=== PATIENT | female | born 1980 | race Caucasian/White ===

== ENCOUNTER 2024-05-18 00:04 | Emergency (ER) | payer SELFPAY ==
[2024-05-18 00:15] VITALS: BP 128/87; PULSE 90; RESP 15; TEMP 37.2; O2SAT 98; BMI 42.4
--- NOTE | 2024-05-18 01:27 | XR_ITS ---
PROCEDURE INFORMATION: Exam: XR Chest Exam date and time: 05/18/2024 1:35 AM Age: 43 years old Clinical indication: Shortness of breath; Additional info: SOA TECHNIQUE: Imaging protocol: Radiologic exam of the chest. Views: 1 view. COMPARISON: No prior studies were available at the time of this dictation. FINDINGS: Lungs: Lungs clear bilaterally. No consolidation. Pleural spaces: No pleural thickening. Heart/Mediastinum: Cardiac silhouette not enlarged. Bones/joints: Bones unremarkable. Other findings: Patient is slightly levo rotated. IMPRESSION: No acute findings.
--- NOTE | 2024-05-18 01:27 | ECG_ITS ---
APPROVED REPORT Exam: Resting ECG HR:77 bpm ECG Measurements Heart Rate 77 AXES WI 145 P 32 QRSd 86 QRS 69 QT 402 T 34 QTc 433 Conclusion SINUS RHYTHM LOW QRS VOLTAGE IN PRECORDIAL LEADS [QRS DEFLECTION < 1.0 mV IN CHEST LEADS] Electronically signed by : CATY PLAZA, 05/18/2024 06:10:03
[2024-05-18 01:35] LABS: Microscopic, Urine URINE MICROSCOPIC (MICROSCOPIC)
[2024-05-18 01:41] LABS: Appearance,Urine CLEAR (Clear); Bilirubin,Urine Negative (Negative); Blood, Urine TRACE-L (Negative); Color,Urine YELLOW (Yellow); Glucose,Urine (UA) Negative (Negative); Ketones,Urine Negative (Negative); Leukocyte Esterase,Urine Negative (Negative); Nitrate,Urine Negative (Negative); Protein,Urine Negative (Negative); Specific Gravity, Urine 1.025 (1.005-1.030); Urobilinogen,Urine 0.2 EU/dl (0.2)
[2024-05-18 01:43] LABS: Basophils # 0.1 K/mm3 (0-0.2); Basophils % 1.1 % (0.1-2.0); Eosinophils # 0.4 K/mm3 (0.0-0.4); Eosinophils % 3.3 % (0.1-12.0); Hematocrit 42.6 % (37.0-47.0); Hemoglobin 13.3 g/dL (12.2-16.2); Lymphocytes # 3.7 K/mm3 (0.7-4.5); Lymphocytes % 34.3 % (10-50); Mean Corpuscular HGB Conc 31.2 g/dL (31.8-35.4); Mean Corpuscular Hemoglobin 29.3 pg (27.0-31.2); Mean Platelet Volume 8.1 fl (7.4-10.4); Monocytes # 0.4 K/mm3 (0.1-1.0); Neutrophils # 6.2 K/mm3 (1.8-7.8); Neutrophils % 57.2 % (37.0-80.0); Platelet Count 396 K/mm3 (142-424); Red Blood Count 4.53 M/mm3 (4.20-5.40); Red Cell Distribution Width 13.9 % (11.5-17.5); White Blood Count 10.8 K/mm3 (4.8-10.8)
[2024-05-18 01:46] LABS: Albumin Level 4.4 g/dl (3.5-5.0); Chloride 107 mmol/L (98-107)
[2024-05-18 01:47] LABS: Potassium 3.8 mmoL/L (3.5-5.1); Sodium 138 mmol/L (136-145)
[2024-05-18 01:48] LABS: HCG Qualitative, Serum Negative (Negative); INR 1.01 (0.9-1.1); Prothrombin Time 11.3 seconds (10.1-12.5)
[2024-05-18 01:49] LABS: Alanine Aminotransferase 663 U/L (12-78); Albumin/Globulin Ratio 1.4 (1.1-1.8); Alkaline Phosphatase 83 U/L (38-126); Anion Gap 11.8 mEq/L (5-15); Aspartate Amino Transferase 330 U/L (14-36); Bilirubin,Total 0.8 mg/dl (0.2-1.3); Blood Urea Nitrogen 9 mg/dl (7-17); Carbon Dioxide 23 mmol/L (22.0-30.0); Creatinine Clearance Estimated 96 mL/min (50-200); Estimated Glomerular Filt Rate 91 ml/min (>60); GFR (African American) 110 ML/MIN (>60); Globulin 3.2 g/dL (1.3-3.2); Total Protein,Serum 7.6 g/dl (6.3-8.2)
[2024-05-18 01:50] LABS: Calcium 9.1 mg/dl (8.4-10.2); Glucose 110 mg/dl (74-100)
[2024-05-18 01:58] LABS: Hemoglobin A1C 5.7 % (4.0-6.0)
[2024-05-18 02:00] LABS: NT Pro Brain Natriuretic Pep. 164 pg/mL (0-125)
[2024-05-18 02:02] LABS: Troponin I < 0.01 ng/ml (0.00-0.034)
--- NOTE | 2024-05-18 02:05 | CT_ITS ---
PROCEDURE INFORMATION: Exam: CT Abdomen And Pelvis With Contrast Exam date and time: 05/18/2024 3:18 AM Age: 43 years old Clinical indication: Abnormal findings; Abnormal lab test; Elevated liver enzymes; Other: Acute lft elevation, peripheral swelling hand/feet TECHNIQUE: Imaging protocol: Computed tomography of the abdomen and pelvis with contrast. Radiation optimization: All CT scans at this facility use at least one of these dose optimization techniques: automated exposure control; mA and/or kV adjustment per patient size (includes targeted exams where dose is matched to clinical indication); or iterative reconstruction. Contrast material: ISOVUE; Contrast volume: 75 ml; Contrast route: IV; COMPARISON: CR XR CHEST PORTABLE 05/18/2024 1:35 AM FINDINGS: Lungs: Minimal right lower lobe subpleural nodularity. Heart: The heart is not enlarged. Coronary artery calcification is absent. Liver: The liver has an unremarkable appearance. No mass. Normal parenchymal enhancement. Gallbladder and biliary ducts: The gallbladder is decompressed. No stones. No gallbladder wall thickening. Pancreas: The pancreatic parenchyma appears homogeneous and unremarkable. Spleen: The spleen is normal. Adrenal glands: The adrenal glands are normal. Kidneys and ureters: The kidneys are normal in size and position. No renal calculi. No hydronephrosis or ureterectasis. No renal mass. Stomach and bowel: No evidence of gastric or intestinal viscus perforation or bowel obstruction. No bowel wall thickening. Appendix: No evidence of appendicitis. Intraperitoneal space: No free air. No ascites. No intraperitoneal mass. Vasculature: The aorta is nonaneurysmal and has a normal appearance. No evidence of dissection. Portal vein is patent. Lymph nodes: No enlarged lymph nodes. Urinary bladder: Urinary bladder partially fluid-filled. No stone. Reproductive: Uterus anteverted. Bones/joints: No acute fracture. Soft tissues: Small fat containing umbilical hernia. IMPRESSION: No acute findings.
--- NOTE | 2024-05-18 02:06 | ED_ITS ---
Discharge Plan Disposition Patient Disposition: Home, Self-Care Condition: Good Prescriptions Prescriptions: New doxycycline hyclate 100 mg capsule 100 mg PO BID 10 Days Qty: 20 0RF doxycycline hyclate 100 mg capsule 100 mg PO BID 14 Days Qty: 28 0RF Referrals Follow up/Referrals: Provider,Referral, [Primary Care Provider] - See instructions Matthew Onofre MD [Staff Physician] - See instructions (Spiritism, swollen hands and legs, transaminitis, needs follow-up and PCP) Activity Restrictions/Add. Instructions Additional Instructions/Restrictions: You were evaluated in the ER and are appropriate for discharge at this time. Take the prescribed doxycycline as directed, do not skip doses, do not stop taking it early. Drink a full glass of water and sit up for 30 minutes after taking it. Use lotion on the hands for comfort. If the pending labs come back positive or concerning, we will call you. You have also been referred to Dr. Onofre in the [facility] system so he can follow up with you about your labs and symptoms as well. Please return to the ER with ANY new, worsening, or otherwise concerning symptoms. With any concerns, please come back to the ER. Clinical Impressions Clinical Impression: Bilateral hand swelling, Leg swelling Print Language Print Language: Indonesian Discharge ED Provider: Berry Sandhu General Adult HPI General Chief complaint: Skin/Abscess/Foreign Body Stated complaint: swelling, pain both hands Time Seen by Provider: 05/18/24 00:53 Mode of Arrival: Family Vehicle Source of Information: Patient Limitations: No Limitations Description of Symptoms (Recalled from ER Triage Doc. by RN): 43 yo female presents with bilat upper extremity redness and swelling that has been ongoing for a couple of days. Denies any recent contact with anyone else with similar symptoms. Denies any contact with new potential allergens. Spent the last week having 'flu-like' symptoms. Was seen by an urgent care who recommended hospital follow up, but they were out of state at that time and wanted to come home to [facility] History of Present Illness HPI narrative: 43-year-old female presents to the ER with bilateral hand swelling and itching. Patient states this has been going on for the last few days. She also reports she has been noticing swelling in her legs. Patient reports last week having flulike symptoms with nausea, body aches. Patient was up in [place] when the symptoms onset and was seen by urgent care who recommended hospital visit, but they were out of state and wanted to come back to [facility] before pursuing further care. Patient states her hands were extremely tight and swollen earlier today but are slightly better now. She reports she has had decreased appetite and decreased fluid intake because of nausea. Patient states she has had intermittent chest pains and shortness of breath. She states she had a an unknown kidney problem as a child but has not had any problems since that time. She does report a history of thyroid abnormality. Patient denies any history of kidney or liver problems. No recent tick bites. Related Data Previous Rx's ?Medication ?Instructions ?Recorded doxycycline hyclate 100 mg capsule 100 mg PO BID 10 days #20 caps 05/18/24 doxycycline hyclate 100 mg capsule 100 mg PO BID 14 days #28 caps 05/18/24 Allergies Allergy/AdvReac Type Severity Reaction Status Date / Time No Known Allergies Allergy Verified 05/18/24 00:58 [facility] Disclaimer: The information contained in this section may have been updated after the patient was seen, as this information can be updated by other users. Social History Smoking Status: Unknown if ever smoked alcohol intake: never current occupational status: other Travel in the last 8 weeks: Inside the [facility] ROS Obtained: Yes All systems reviewed & no additional complaints except as documented Constitutional Constitutional: Denies chills, Denies fever(s), Denies headache(s), Reports malaise (Generalized) and Denies weakness Eyes Eyes: Denies change in vision ENT Ears, Nose, Mouth, and Throat: Denies dizziness, Denies headache(s), Denies nasal congestion and Denies sore throat Cardiovascular Cardiovascular: Reports chest pain, Reports dyspnea and Reports leg edema Respiratory Respiratory: Denies cough and Reports dyspnea Gastrointestinal Gastrointestingal: Reports nausea; Denies abdominal pain, constipation, diarrhea or vomiting Genitourinary Female Genitourinary: Denies dysuria Musculoskeletal Musculoskeletal: Denies arthralgias, Reports joint swelling (Swelling of the hands and legs), Denies myalgias and Denies numbness Integumentary/Breasts Skin/Breast: Denies change in pigmentation Neurologic Neurologic: Denies dizziness, Denies headache(s), Denies numbness and Denies weakness Physical Exam General General appearance: alert and in no apparent distress Head Head exam: atraumatic and normocephalic Eye Eye exam: Present PERRL and EOMI ENT ENT exam: Present mucous membranes moist Neck Neck exam: Present normal inspection and full ROM Chest Chest inspection: Present symmetric chest wall rise Respiratory Respiratory exam: Present normal lung sounds bilaterally; Absent respiratory distress, wheezes or stridor Cardiovascular Cardiovascular exam: Present regular rate and normal rhythm Abdominal Exam Abdominal exam: Present soft and tenderness (Mild epigastric); Absent distention, guarding or rebound Extremities Exam Extremities exam: Present full ROM and edema (Pitting edema and bilateral lower extremities, 2+, patient also has pitting edema in the bilateral hands.); Absent tenderness Neurological Exam Neurological exam: Present alert and oriented X3; Absent motor sensory deficit Psychiatric Psychiatric exam: Present normal affect and normal mood Skin Skin exam: Present warm, dry and rash (Faint rash that appears like excoriations on patient's left glute) Medical Decision Making Nelson Inquiry Pt receiving controlled substance: No Vital Signs: 05/18/24 00:15 Temperature 98.9 F Temperature Source Oral Pulse Rate [Right Brachial] 90 Respiratory Rate 15 Blood Pressure [Right Arm] 128/87 Blood Pressure Mean [Right Arm] 100 Blood Pressure Source [Right Arm] Automatic Cuff Blood Pressure Position [Right Arm] Sitting 02 Sat by Pulse Oximetry 98 Oxygen Delivery Method Room Air Lab Data Lab Results 05/18/24 00:30: WBC 10.8, RBC 4.53, Hgb 13.3, Hct 42.6, MCV 94.0, MCH 29.3, MCHC 31.2 L, RDW 13.9, Plt Count 396, MPV 8.1, Neut % (Auto) 57.2, Lymph % (Auto) 34.3, Mchenry % (Auto) 4.0, Eos % (Auto) 3.3, Baso % (Auto) 1.1, Neut # (Auto) 6.2, Lymph # (Auto) 3.7, Mchenry # (Auto) 0.4, Eos # (Auto) 0.4, Baso # (Auto) 0.1, PT 11.3, INR 1.01, Sodium 138, Potassium 3.8, Chloride 107, Carbon Dioxide 23, Anion Gap 11.8, BUN 9, Creatinine 0.70, Estimated Creat Clear 96, Estimated GFR 91, Est GFR ( Amer) 110, Glucose 110 H, Hemoglobin A1c 5.7, Calcium 9.1, Total Bilirubin 0.8, AST 330 H*, ALT 663 H*, Alkaline Phosphatase 83, Troponin I < 0.01, NT-Pro-B Natriuret Pep 164 H, Total Protein 7.6, Albumin 4.4, Globulin 3.2, Albumin/Globulin Ratio 1.4, TSH 3.19, Free T4 0.94, Serum HCG, Qual Negative, Urine Color Yellow, Urine Appearance Clear, Urine pH 6.0, Ur Specific Heppner 1.025, Urine Protein Negative, Urine Glucose (UA) Negative, Urine Ketones Negative, Urine Blood Trace-l, Urine Nitrate Negative, Urine Bilirubin Negative, Urine Urobilinogen 0.2, Ur Leukocyte Esterase Negative, Urine RBC Occasional, Urine WBC Occasional, Ur Squamous Epith Cells 5-10, Urine Bacteria Trace, Urine Mucus Trace, Monoscreen Negative 05/18/24 04:28: Troponin I < 0.01 05/18/24 00:30 05/18/24 00:30 Orders (Tests/Meds): ED MEDICATIONS Generic Name Dose Route Start Last Admin Trade Name Freq PRN Reason Stop Dose Admin Sodium Chloride 10 ml 05/18/24 03:30 05/18/24 03:31 Sodium Chloride 0.9% 10ml Syr (Rad Only) IV 06/17/24 03:29 10 ml NEEDED PRN Administration Maintain IV Site Discontinued Medications Generic Name Dose Route Start Last Admin Trade Name Freq PRN Reason Stop Dose Admin Doxycycline Hyclate 100 mg 05/18/24 04:19 05/18/24 04:32 Doxycycline Hycl 100 Mg Tablet PO 05/18/24 04:20 100 mg ONCE ONE Administration Iopamidol 80 ml 05/18/24 03:30 05/18/24 03:31 Iopamidol-370 (76%);100ml Bottle IV 05/18/24 03:31 80 ml ONCE ONE Administration ORDERS Category Date Time Status CT abdomen pelvis w con Stat Cat Scan 05/18/24 02:05 Completed CXR --portable [XR chest portable] Stat Exams 05/18/24 01:27 Completed POCUS Point of Care (ER Only) Stat Exams 05/18/24 04:14 Ordered BNP [NT Pro Brain Natriuretic Pep.] Stat Lab 05/18/24 00:30 Completed CBC w/Auto Diff [Complete Blood Count Auto Diff] Stat Lab 05/18/24 00:30 Completed CMP [Comprehensive Metabolic Panel] Stat Lab 05/18/24 00:30 Completed Free T4 (Free Thyroxine) Stat Lab 05/18/24 00:30 Completed HCG Qualitative, Serum Stat Lab 05/18/24 00:30 Completed Hemoglobin A1C Stat Lab 05/18/24 00:30 Completed Hepatitis Panel Stat Lab 05/18/24 02:30 Received Monoscreen (Rapid) Stat Lab 05/18/24 00:30 Completed PT INR [Prothrombin Time INR] Stat Lab 05/18/24 00:30 Completed Peripheral Smear Review Stat Lab 05/18/24 00:30 Received Thyroid Stimulating Hormone Stat Lab 05/18/24 00:30 Completed Trop I [Troponin I] Stat Lab 05/18/24 00:30 Completed Troponin I Q3H Lab 05/18/24 04:28 Completed Troponin I Q3H Lab 05/18/24 07:30 Ordered Urinalysis and Microscopic Stat Lab 05/18/24 00:30 Completed Medical Decision Narrative: In summary, this 43-year-old female presents to the emergency department today with multiple complaints including generalized malaise and peripheral edema. On initial evaluation patient is hemodynamically stable, afebrile, pitting edema in the hands and legs, mild epigastric tenderness, cardiopulmonary exam reassuring. Differential diagnosis includes but is not limited to cardiac dysfunction, fluid overload, liver dysfunction, kidney dysfunction, proteinuria, nephrotic/nephritic syndrome, diabetes, thyroid dysfunction, considered tickborne illness given patient is Spiritism and outside frequently, no findings of erythema migrans or other pathognomonic rash for tickborne illnesses. Based on these concerns, I ordered broad serum workup as well as cardiac workup initially. ECG personally interpreted demonstrates normal sinus rhythm, rate 77, normal axis, normal AK and QTc, no STEMI. Labs personally reviewed demonstrate no leukocytosis or anemia, normal platelets at 396, PT/INR normal, CMP with no actionable electrolyte abnormality, patient does not have any findings of kidney dysfunction, however she does have elevation of liver enzymes with AST 330, ALT 663, albumin normal at 4.4, T4 normal at 0.94, initial troponin undetectably low at less than 0.01, given duration of patient's symptoms this is reassuring against acute cardiac abnormality, BNP slightly elevated at 164, UA negative for findings of infection, protein negative. With transaminitis identified, CT imaging was performed to evaluate for malignancy, biliary blockage, thrombus. Hepatitis panel has been sent but this is a send out. Monoscreen negative. XR personally interpreted demonstrates no acute intrathoracic abnormality, see radiology read for final interpretation. CT imaging personally interpreted demonstrate no acute intra-abdominal pathology. See radiology read for final interpretation. Notably, portal vein is patent, no masses, no abnormalities of the liver or gallbladder. I performed bedside cardiac ultrasound to evaluate cardiac function and to look for possible vegetations though I have extremely low suspicion for endocarditis since patient does not have any criteria for it or physical exam findings otherwise consistent with it other than peripheral edema. See procedure note for details. On reassessment, patient continues to be stable and resting comfortably. Her hemodynamics remained unchanged. Hepatitis panel is pending. Family has provided a phone number for a trusted friend that they state we can call if we need to contact the patient. If her hepatitis panel is positive, this is the number that will be used to contact them. With patient's lifestyle and no other obvious explanation for the mild transaminitis or peripheral swelling, I am going to empirically treat for tickborne illness. Patient received doxycycline in the ER and it was prescribed for outpatient management as well. Peripheral smear to examine for babesiosis is also pending. Doxycycline will cover for the other tickborne illnesses except babesiosis, though I do have lower suspicion for this illness specifically therefore I will not treat empirically for it. I have referred her to Dr. Jemima jiménez for outpatient follow-up. I also gave the patient and her spouse explicit instructions on symptomatic monitoring and strict return precautions for the ER. They indicated understanding and the patient was discharged in stable condition. Procedures Miscellaneous Procedure Procedure Performed: Limited Cardiac Ultrasound Indication: Swelling Identified cardiac views: [-Cardiac parasternal long axis] [-Cardiac parasternal short axis] [-Cardiac apical four-chamber] Findings: Cardiac activity present, no gross wall motion abnormality, no pericardial effusion, no right heart strain, no vegetations on the valves Impression: -Unremarkable limited cardiac ultrasound Images were saved to permanent archive The study was technically adequate CPT: 64565 This study was performed by me, and I personally interpreted all images/videos. Based on my clinical judgement, these images were adequate and did not necessitate further imaging. Critical Care Critical Care Time Critical Care Time: No
[2024-05-18 02:08] LABS: Free T4 (Free Thyroxine) 0.94 ng/dl (0.78-2.19)
[2024-05-18 02:09] LABS: RBC,Urine Occasional #/hpf (0-3); WBC,Urine Occasional #/hpf (0-3)
[2024-05-18 02:10] LABS: Bacteria,Urine Trace /lpf; Mucus,Urine Trace /lpf
[2024-05-18 02:21] LABS: Thyroid Stimulating Hormone 3.19 uIU/mL (0.465-4.68)
[2024-05-18] MEDS: IOPAMIDOL-370 (76%);100ML BOTTLE 80 ML IV (03:31)
[2024-05-18] MEDS: SODIUM CHLORIDE 0.9% 10ML SYR (RAD ONLY) 10 ML IV (03:31)
[2024-05-18 04:19] LABS: Monoscreen (Rapid) Negative (Negative)
[2024-05-18] MEDS: DOXYCYCLINE HYCL 100 MG TABLET PO (04:32)
--- NOTE | 2024-05-18 04:40 | PC.NURSE ---
received verbal permission for us to contact the contact number listed on the chart as it is the phone of Darshan Walker, their work driver education road instructor . We are to leave a message for call back to the hospital with test results or further instructions as needed.
[2024-05-18 05:02] LABS: Troponin I < 0.01 ng/ml (0.00-0.034)
[2024-05-18 05:10] VITALS: BP 125/80; PULSE 89; RESP 15; TEMP 36.7; O2SAT 97
[2024-05-19 08:29] LABS: HBsAg Screen Negative (Negative); HCV Ab Non Reactive (Non Reactive); Hep A Ab, IGM Negative (Negative); Hep B Core Ab, IgM Negative (Negative)
[2024-05-20 05:08] LABS: Peripheral Smear Review Scanned Result
[2024-05-21 06:21] LABS: Osmolality, Urine 482 mOsmol/kg (.)
== END 2024-05-18 05:16 | disposition home or self-care (01) ==
PROVIDERS: Emergency Provider Emergency Medicine
DX: R22.43 Localized swelling, mass and lump, lower limb, bilateral (principal); R22.33 Localized swelling, mass and lump, upper limb, bilateral; R06.02 Shortness of breath; R11.0 Nausea; R10.816 Epigastric abdominal tenderness; R94.5 Abnormal results of liver function studies; R74.01 Elevation of levels of liver transaminase levels
CPT/HCPCS: 71045; 74177; 80050; 80053; 80074; 81001; 83036; 83880; 83935; 84439; 84443; 84484; 84703; 85025; 85610; 86318; 93005; 99285; Q9967